=== PATIENT | female | born 1950 | race African-American/Black ===

== ENCOUNTER 2024-02-01 08:38 | Emergency (ER) | payer OTHER ==
[2024-02-01 08:45] VITALS: TEMP 97.6; BMI 31.4
[2024-02-01 11:21] LABS: BASO % 0.5 % (0-2.0); EOS % 0.1 % (0-4.5); HEMATOCRIT 37.5 % (32.4-45.2); HEMOGLOBIN 12.4 GM/dL (10.7-15.3); LYMPH % 20.2 % (8-40); MCH 26.3 pg (25.7-33.7); MEAN CELL VOLUME 79.5 fl (80-96); MEAN PLT VOLUME 10.2 fl (7.5-11.1); MONO % 5.8 % (3.8-10.2); NEUT % 73.4 % (42.8-82.8); PLATELET COUNT 224 10^3/uL (134-434); RBC 4.72 M/mm3 (3.60-5.2); RDW 14.8 % (11.6-15.6); WHITE BLOOD COUNT 10.2 K/mm3 (4.0-10.0)
[2024-02-01 11:34] LABS: INR 1.05 (0.83-1.09); PROTHROMBIN TIME (PATIENT) 12.2 SEC (9.7-13.0)
[2024-02-01 11:55] LABS: POTASSIUM 4.5 mmol/L (3.5-5.1)
[2024-02-01 11:57] LABS: CALCIUM 9.9 mg/dL (8.5-10.1)
[2024-02-01 11:58] LABS: BLOOD UREA NITROGEN 7.6 mg/dL (7-18)
[2024-02-01 12:01] LABS: CREATININE 0.7 mg/dL (0.55-1.3)
[2024-02-01 12:02] LABS: BILIRUBIN,TOTAL 0.6 mg/dL (0.2-1); TOT PROT 7.4 g/dl (6.4-8.2)
[2024-02-01 12:26] LABS: EPI CELLS 3 /uL (0-25.1); HYALINE CASTS 1 /uL (0-3.1); PH,URINE 5.5 (5.0-8.0); URINE APPEARANCE CLEAR; URINE BACTERIA 2 /uL (0-1359); URINE BILIRUBIN NEGATIVE (NEGATIVE); URINE COLOR YELLOW; URINE GLUCOSE (UA) NEGATIVE (NEGATIVE); URINE KETONE NEGATIVE (NEGATIVE); URINE LEUK ESTERASE NEGATIVE (NEGATIVE); URINE NITRITE NEGATIVE (NEGATIVE); URINE PROTEIN 2+ (NEGATIVE); URINE RBC 14 /uL (0-23.9); URINE UROBILINOGEN 0.2 mg/dL (0.2-1.0); URINE WBC 8 /uL (0-25.8)
[2024-02-01 14:16] VITALS: BP 172/74; PULSE 78; RESP 20
== END 2024-02-01 14:16 | disposition home or self-care (01) ==
LOC: JER 08:38
DX: K59.00 Constipation, unspecified (principal); R10.84 Generalized abdominal pain; R10.31 Right lower quadrant pain
CPT/HCPCS: 36415; 74177-TC; 80053; 81003; 83690; 85025; 85610; 87086; 93005; 93010; 99285-25

== ENCOUNTER 2024-05-09 04:32 | Day surgery (SDC) | payer OTHER ==
[2024-05-01 15:42] VITALS: BMI 31.4
[2024-05-09 11:11] VITALS: TEMP 98
[2024-05-09 11:15] VITALS: BP 152/66; PULSE 73; RESP 13
== END 2024-05-09 11:43 | disposition home or self-care (01) ==
LOC: JASU-ENDO 04:32
PROVIDERS: ATTEND Internal Medicine Gastroenterology
PROC: 0DBK8ZX Excision of Ascending Colon, Via Natural or Artificial Opening Endoscopic, Diagnostic (ICD-10-PCS; principal; 2024-05-09 10:00)
DX: Z12.11 Encounter for screening for malignant neoplasm of colon (principal); D12.2 Benign neoplasm of ascending colon; K57.30 Diverticulosis of large intestine without perforation or abscess without bleeding; K64.8 Other hemorrhoids; Z86.010 Personal history of colon polyps
CPT/HCPCS: 82962; 88305-TC